=== PATIENT | male | born 1970 | race Caucasian/White ===

== ENCOUNTER 2024-10-16 07:41 | Emergency (ER) | payer BC, MEDICAID ==
[~2024-10-16] VITALS: Ht 182.9 cm; Wt 136.0 kg
[~2024-10-16 07:41] MED LIST: AMLO2.5T96 PO; QUET300T19 PO; QUET300T2 PO
[2024-10-16 07:45] VITALS: TEMP 97.8
[2024-10-16 07:50] VITALS: BP 134/69; PULSE 75; RESP 16; O2SAT 100
[2024-10-16 08:05] LABS: BASOPHILS % (AUTO) 0.8 % (0.0-2.0); EOSINOPHILS % (AUTO) 0.9 % (1.0-6.0); HEMATOCRIT 44.1 % (41-53); LYMPHOCYTES # (AUTO) 1.9 K/uL (1.0-4.8); LYMPHOCYTES % (AUTO) 19.3 % (22.0-44.0); MEAN CORPUSCULAR HEMOGLOBIN 29.8 pg (26.0-34.0); MEAN CORPUSCULAR HGB CONC 34.1 G/dL (31.0-37.0); MEAN CORPUSCULAR VOLUME 87 fL (80-100); MONOCYTES # (AUTO) 0.9 K/uL (0.1-1.0); MONOCYTES % (AUTO) 8.9 % (2.0-9.0); NEUTROPHILS % (AUTO) 70.1 % (40.0-70.0); PLATELET COUNT (AUTO) 180 K/uL (150-450); RED BLOOD CELL COUNT(AUTO) 5.05 MIL/uL (4.50-5.90); RED CELL DISTRIBUTION WIDTH 14.5 % (11.5-14.5)
[2024-10-16 08:14] LABS: ANION GAP 8 mmol/L (8-16); CALCIUM, TOTAL 9.4 mg/dL (8.8-10.5); CARBON DIOXIDE 28 mmol/L (22-29); CHLORIDE 101 mmol/L (98-107); CREATININE 0.77 mg/dL (0.60-1.30); GLOMERULAR FILTR. RATE CALC > 60 mL/min (>60); GLUCOSE,RANDOM 100 mg/dL (70-110); LIPASE 102 U/L (16-77); POTASSIUM 4.2 mmol/L (3.5-5.1); SODIUM SERUM 137 mmol/L (136-145); UREA NITROGEN, BLOOD 13 mg/dL (7-18)
[2024-10-16 08:20] LABS: ALBUMIN 4.1 g/dL (3.4-5.0); BILIRUBIN,DIRECT 0.3 mg/dL (0.00-0.20); TOTAL PROTEIN, SERUM 7.5 g/dL (6.4-8.2)
[2024-10-16 09:09] LABS: APPEARANCE,URINE CLEAR (CLEAR); BILIRUBIN,URINE NEGATIVE (NEGATIVE); COLOR,URINE COLORLESS (YELLOW); GLUCOSE, URINE (UA) NEGATIVE (NEGATIVE); KETONES,URINE NEGATIVE (NEGATIVE); LEUKOCYTE ESTERASE ,URINE NEGATIVE (NEGATIVE); NITRATE,URINE NEGATIVE (NEGATIVE); OCCULT BLOOD,URINE NEGATIVE (NEGATIVE); PH,URINE 6.5 (5.0-8.0); PROTEIN,URINE NEGATIVE (NEGATIVE); SPECIFIC GRAVITIY, URINE 1.004 (1.003-1.030); UROBILINOGEN,URINE <=1.0 mg/dL (<=1.0)
== END 2024-10-16 09:35 | disposition home or self-care (01) ==
LOC: EMS 07:46
DX: R10.84 Generalized abdominal pain (principal); I10 Essential (primary) hypertension; F20.9 Schizophrenia, unspecified; Z79.899 Other long term (current) drug therapy
CPT/HCPCS: 80048; 80076; 81003; 83690; 85025; 99283

== ENCOUNTER 2024-12-22 11:00 | Inpatient (IN) | payer BC, MEDICAID ==
[~2024-12-22] VITALS: Ht 185.4 cm; Wt 112.9 kg
[2024-12-22 11:44] LABS: ANION GAP 8 mmol/L (8-16); CALCIUM, TOTAL 9.2 mg/dL (8.8-10.5); CARBON DIOXIDE 27 mmol/L (22-29); CHLORIDE 104 mmol/L (98-107); CREATININE 0.84 mg/dL (0.60-1.30); GLOMERULAR FILTR. RATE CALC > 60 mL/min (>60); GLUCOSE,RANDOM 104 mg/dL (70-110); SODIUM SERUM 139 mmol/L (136-145); UREA NITROGEN, BLOOD 7 mg/dL (7-18)
[2024-12-22 11:47] LABS: BASOPHILS % (AUTO) 0.6 % (0.0-2.0); EOSINOPHILS % (AUTO) 0.7 % (1.0-6.0); HEMATOCRIT 47.6 % (41-53); HEMOGLOBIN 15.7 g/dL (13.5-17.5); LYMPHOCYTES # (AUTO) 1.4 K/uL (1.0-4.8); LYMPHOCYTES % (AUTO) 16.8 % (22.0-44.0); MEAN CORPUSCULAR HEMOGLOBIN 28.8 pg (26.0-34.0); MEAN CORPUSCULAR HGB CONC 32.9 G/dL (31.0-37.0); MEAN CORPUSCULAR VOLUME 88 fL (80-100); MONOCYTES # (AUTO) 0.6 K/uL (0.1-1.0); MONOCYTES % (AUTO) 7.3 % (2.0-9.0); NEUTROPHILS % (AUTO) 74.6 % (40.0-70.0); PLATELET COUNT (AUTO) 176 K/uL (150-450); RED BLOOD CELL COUNT(AUTO) 5.43 MIL/uL (4.50-5.90); RED CELL DISTRIBUTION WIDTH 15.5 % (11.5-14.5); WHITE BLOOD COUNT (AUTO) 8.1 K/uL (4.5-11.0)
[2024-12-22 12:24] LABS: COVID AG,FIA SOURCE NASAL SWAB
[2024-12-22 12:59] LABS: SARS-COV2 (COVID) ANTIGEN,FIA Negative (Negative)
[2024-12-22 14:03] VITALS: O2SAT 98
[2024-12-22 17:25] VITALS: BP 120/70; PULSE 75; RESP 15; TEMP 97.4; O2SAT 100
[2024-12-22] MEDS: haloperidoL 5 MG TABLET PO PRN (20:58)
[2024-12-22] MEDS: ZOLPIDEM TARTRATE 10 MG TABLET PO PRN (20:58)
[2024-12-22] MEDS: LORazepam 2 MG TABLET PO PRN (20:58)
[2024-12-22 22:33] VITALS: BP 126/87; PULSE 96; RESP 17; TEMP 97.1; O2SAT 99
[2024-12-23 08:33] VITALS: BP 121/79; PULSE 100; RESP 18; TEMP 98.4; O2SAT 88
[2024-12-23 08:34] LABS: BASOPHILS % (AUTO) 0.6 % (0.0-2.0); EOSINOPHILS % (AUTO) 1.2 % (1.0-6.0); HEMATOCRIT 44.2 % (41-53); LYMPHOCYTES # (AUTO) 1.3 K/uL (1.0-4.8); LYMPHOCYTES % (AUTO) 16.3 % (22.0-44.0); MEAN CORPUSCULAR HEMOGLOBIN 29.5 pg (26.0-34.0); MEAN CORPUSCULAR HGB CONC 33.9 G/dL (31.0-37.0); MEAN CORPUSCULAR VOLUME 87 fL (80-100); MONOCYTES # (AUTO) 0.4 K/uL (0.1-1.0); MONOCYTES % (AUTO) 5.4 % (2.0-9.0); NEUTROPHILS # (AUTO) 5.9 K/uL (1.8-7.7); NEUTROPHILS % (AUTO) 76.5 % (40.0-70.0); PLATELET COUNT (AUTO) 166 K/uL (150-450); RED BLOOD CELL COUNT(AUTO) 5.09 MIL/uL (4.50-5.90); RED CELL DISTRIBUTION WIDTH 15.7 % (11.5-14.5); WHITE BLOOD COUNT (AUTO) 7.7 K/uL (4.5-11.0)
[2024-12-23 08:39] LABS: HEMOGLOBIN A1C 4.9 % (3.8-5.6)
[2024-12-23 08:58] LABS: ALANINE AMINOTRANSFERASE 17 U/L (12-78); ALBUMIN 3.7 g/dL (3.4-5.0); ALKALINE PHOSPHATASE 64 U/L (46-116); ANION GAP 7 mmol/L (8-16); ASPARTATE AMINOTRANSFERASE 13 U/L (15-37); BILIRUBIN,TOTAL 0.7 mg/dL (0.1-1.0); CALCIUM, TOTAL 9.1 mg/dL (8.8-10.5); CARBON DIOXIDE 28 mmol/L (22-29); CHLORIDE 105 mmol/L (98-107); CHOLESTEROL 169 mg/dL (131-200); CREATININE 0.81 mg/dL (0.60-1.30); FREE T4 (FREE THYROXINE) 0.91 ng/dL (0.76-1.46); GLOMERULAR FILTR. RATE CALC > 60 mL/min (>60); GLUCOSE,RANDOM 111 mg/dL (70-110); HDL CHOLESTEROL 42 mg/dL (40-60); LDL CHOL (CALC.) 102 mg/dL (0-130); POTASSIUM 3.9 mmol/L (3.5-5.1); SODIUM SERUM 140 mmol/L (136-145); THYROID STIMULATING HORMONE 3.09 uIU/mL (0.36-3.74); TOTAL PROTEIN, SERUM 6.8 g/dL (6.4-8.2); TRIGLYCERIDES 127 mg/dL (15-150); UREA NITROGEN, BLOOD 9 mg/dL (7-18)
[2024-12-23 09:09] LABS: ALCOHOL, URINE DRUG SCREEN NEGATIVE (NEGATIVE); AMPHET/METH SCREEN,URINE NEGATIVE (NEGATIVE); BARBITURATE SCREEN, URINE NEGATIVE (NEGATIVE); BENZODIAZEPINES SCREEN,URINE NEGATIVE (NEGATIVE); CANNABINOID SCREEN,URINE NEGATIVE (NEGATIVE); COCAINE SCREEN,URINE NEGATIVE (NEGATIVE); METHADONE SCREEN, URINE NEGATIVE (NEGATIVE); OPIATE SCREEN,URINE NEGATIVE (NEGATIVE); PHENCYCLIDINE SCREEN,URINE NEGATIVE (NEGATIVE)
[2024-12-23] MEDS: QUEtiapine FUMARATE 300 MG TABLET PO SCH (14:08)
[2024-12-23 20:30] VITALS: RESP 17
[2024-12-24 08:18] VITALS: BP 133/78; PULSE 99; RESP 18; TEMP 97.4; O2SAT 100
[2024-12-24] MEDS: QUEtiapine FUMARATE 200 MG TABLET PO SCH (09:41)
[2024-12-24 20:39] VITALS: BP 131/90; PULSE 89; RESP 18; TEMP 97.3; O2SAT 97
[2024-12-25] MEDS: TAMSULOSIN HCL 0.4 MG CAPSULE PO SCH (08:14)
[2024-12-25 09:06] VITALS: BP_SYST 114; BP_SYST 144; BP_DIAS 72; PULSE 87; RESP 17; TEMP 97.8; O2SAT 99
[2024-12-25 20:11] VITALS: BP 131/84; PULSE 97; RESP 19; TEMP 97.3; O2SAT 97
[2024-12-26 08:22] VITALS: BP 142/94; PULSE 90; RESP 18; TEMP 97.1; O2SAT 99
[2024-12-26] MEDS ORDERED: DiphenhydrAMINE HCL 50 MG/ML VIAL ONE (12:09)
[2024-12-26] MEDS ORDERED: haloperidoL LACTATE 5 MG/ML VIAL ONE (12:09)
[2024-12-26] MEDS ORDERED: LORazepam 2 MG/ML VIAL ONE (12:09)
[2024-12-26] MEDS: LORazepam 2 MG/ML VIAL IM ONE (12:29)
[2024-12-26] MEDS: DiphenhydrAMINE HCL 50 MG/ML VIAL IM ONE (12:30)
[2024-12-26] MEDS: haloperidoL LACTATE 5 MG/ML VIAL IM ONE (12:30)
[2024-12-26 20:33] VITALS: BP 120/91; PULSE 65; RESP 16; TEMP 97.7; O2SAT 96
[2024-12-26] MEDS: OLANZapine 10 MG TABLET PO SCH (20:43)
[2024-12-27 08:30] VITALS: BP 126/91; PULSE 94; RESP 18; TEMP 97.1; O2SAT 98
[2024-12-27 10:06] VITALS: RESP 17
[2024-12-27] MEDS: IBUPROFEN 600 MG TABLET PO SCH (10:06)
[2024-12-27] MEDS: DOCUSATE SODIUM 250 MG CAPSULE PO SCH (10:06)
[2024-12-27 11:06] VITALS: RESP 18
[2024-12-27 20:14] VITALS: BP 121/79; PULSE 78; RESP 19; TEMP 97.4; O2SAT 99
[2024-12-28 00:15] VITALS: RESP 18
[2024-12-28 05:39] VITALS: RESP 20
[2024-12-28 06:57] VITALS: RESP 18
[2024-12-28 08:55] VITALS: BP 141/79; PULSE 83; RESP 18; TEMP 97.5; O2SAT 99
[2024-12-28] MEDS ORDERED: TAMS0.4C94 PO (10:16)
[2024-12-28] MEDS ORDERED: DOCU-412 PO (10:17)
[2024-12-28] MEDS ORDERED: QUET200T PO (10:19)
[2024-12-28] MEDS ORDERED: OLAN10TA74 PO (10:20)
== END 2024-12-28 15:15 | disposition home or self-care (01) | DRG 885 ==
LOC: EMS 11:01 → B3A 14:38
PROVIDERS: ADMIT Psychiatry & Neurology Child & Adolescent Psychiatry; ATTEND Psychiatry & Neurology Child & Adolescent Psychiatry
PROC: GZ56ZZZ Individual Psychotherapy, Supportive (ICD-10-PCS; principal; 2024-12-23)
DX: F25.1 Schizoaffective disorder, depressive type (principal); R45.851 Suicidal ideations; Z20.822 Contact with and (suspected) exposure to COVID-19; N40.0 Benign prostatic hyperplasia without lower urinary tract symptoms; Z91.148 Patient's other noncompliance with medication regimen for other reason
CPT/HCPCS: 80048; 80053; 80061; 80307; 83036; 84439; 84443; 85025; 99285; G0480; J1200; J1630; J2060

== ENCOUNTER 2025-01-05 12:48 | Inpatient (IN) | payer BC, MEDICAID ==
[~2025-01-05] VITALS: Ht 185.4 cm; Wt 117.0 kg
[~2025-01-05 12:48] MED LIST changes: -AMLO2.5T96 PO; +DOCU-412 PO; +OLAN10TA74 PO; +QUET200T PO; -QUET300T19 PO; -QUET300T2 PO; +TAMS0.4C94 PO
[2025-01-05 15:05] LABS: GLUCOMETER DEV NAME(LOC) POC.BV; POC SARS-COV2 AG, FIA NEGATIVE (NEGATIVE)
[2025-01-05 15:15] VITALS: BP 124/84; PULSE 72; RESP 17; TEMP 97.3; O2SAT 100
[2025-01-05] MEDS ORDERED: PARO10TA89 PO (16:06)
[2025-01-05 16:59] VITALS: BP 116/72; PULSE 77; RESP 18; TEMP 98.7; O2SAT 98
[2025-01-05] MEDS: haloperidoL 5 MG TABLET PO PRN (17:02)
[2025-01-05] MEDS: LORazepam 2 MG TABLET PO PRN (17:03)
[2025-01-05] MEDS ORDERED: FINA5TAB41 PO (17:52)
[2025-01-05 20:51] VITALS: BP 117/73; PULSE 78; RESP 17; TEMP 98.7; O2SAT 98
[2025-01-06] MEDS ORDERED: ACETAMINOPHEN 325 MG TABLET PO PRN (07:15)
[2025-01-06] MEDS: TAMSULOSIN HCL 0.4 MG CAPSULE PO SCH (08:22)
[2025-01-06] MEDS: DOCUSATE SODIUM 250 MG CAPSULE PO SCH (08:22)
[2025-01-06 08:44] LABS: BASOPHILS % (AUTO) 0.7 % (0.0-2.0); EOSINOPHILS % (AUTO) 1.8 % (1.0-6.0); HEMATOCRIT 44.9 % (41-53); LYMPHOCYTES # (AUTO) 1.5 K/uL (1.0-4.8); LYMPHOCYTES % (AUTO) 18.5 % (22.0-44.0); MEAN CORPUSCULAR HEMOGLOBIN 29.1 pg (26.0-34.0); MEAN CORPUSCULAR HGB CONC 33.5 G/dL (31.0-37.0); MEAN CORPUSCULAR VOLUME 87 fL (80-100); MONOCYTES # (AUTO) 0.6 K/uL (0.1-1.0); MONOCYTES % (AUTO) 6.8 % (2.0-9.0); NEUTROPHILS # (AUTO) 5.8 K/uL (1.8-7.7); NEUTROPHILS % (AUTO) 72.2 % (40.0-70.0); PLATELET COUNT (AUTO) 187 K/uL (150-450); RED BLOOD CELL COUNT(AUTO) 5.17 MIL/uL (4.50-5.90); RED CELL DISTRIBUTION WIDTH 15.1 % (11.5-14.5); WHITE BLOOD COUNT (AUTO) 8.1 K/uL (4.5-11.0)
[2025-01-06 08:54] VITALS: BP 125/81; PULSE 76; RESP 18; TEMP 97.6; O2SAT 100
[2025-01-06 09:00] LABS: ALCOHOL, BLOOD (SERUM) < 3 mg/dL (0-10)
[2025-01-06 09:03] LABS: HEMOGLOBIN A1C 4.9 % (3.8-5.6)
[2025-01-06 09:11] LABS: ALANINE AMINOTRANSFERASE 18 U/L (12-78); ALBUMIN 3.8 g/dL (3.4-5.0); ALKALINE PHOSPHATASE 70 U/L (46-116); ANION GAP 5 mmol/L (8-16); ASPARTATE AMINOTRANSFERASE 17 U/L (15-37); BILIRUBIN,TOTAL 0.7 mg/dL (0.1-1.0); CARBON DIOXIDE 31 mmol/L (22-29); CHLORIDE 102 mmol/L (98-107); CHOL/HDL RATIO 3.7 (4.2-7.3); CHOLESTEROL 161 mg/dL (131-200); CREATININE 0.71 mg/dL (0.60-1.30); GLOMERULAR FILTR. RATE CALC > 60 mL/min (>60); GLUCOSE,RANDOM 81 mg/dL (70-110); HDL CHOLESTEROL 43 mg/dL (40-60); LDL CHOL (CALC.) 80 mg/dL (0-130); POTASSIUM 3.8 mmol/L (3.5-5.1); SODIUM SERUM 138 mmol/L (136-145); T4 (THYROXINE) 5.8 mcg/dL (4.7-13.3); THYROID STIMULATING HORMONE 2.44 uIU/mL (0.36-3.74); TOTAL PROTEIN, SERUM 6.9 g/dL (6.4-8.2); TRIGLYCERIDES 189 mg/dL (15-150); UREA NITROGEN, BLOOD 8 mg/dL (7-18)
[2025-01-06 11:21] VITALS: RESP 18
[2025-01-06] MEDS: IBUPROFEN 600 MG TABLET PO PRN (11:21)
[2025-01-06 12:21] VITALS: RESP 18
[2025-01-06] MEDS: QUEtiapine FUMARATE 200 MG TABLET PO SCH (12:23)
[2025-01-06 20:39] VITALS: BP 113/77; PULSE 93; RESP 17; TEMP 97; O2SAT 98
[2025-01-06] MEDS: PARoxetine HCL 10 MG TABLET PO SCH (21:14)
[2025-01-06] MEDS: OLANZapine 10 MG TABLET PO SCH (21:14)
[2025-01-06] MEDS: ZOLPIDEM TARTRATE 10 MG TABLET PO PRN (21:14)
[2025-01-07 08:57] VITALS: BP 123/76; PULSE 84; RESP 17; TEMP 97; O2SAT 98
[2025-01-07 15:52] VITALS: RESP 18
[2025-01-07 20:28] VITALS: BP 133/76; PULSE 95; RESP 18; TEMP 97.5; O2SAT 99
[2025-01-08 08:21] VITALS: BP 120/82; PULSE 93; RESP 18; TEMP 98; O2SAT 99
[2025-01-08 08:42] LABS: APPEARANCE,URINE CLEAR (CLEAR); BILIRUBIN,URINE NEGATIVE (NEGATIVE); COLOR,URINE LIGHT YELLOW (YELLOW); GLUCOSE, URINE (UA) NEGATIVE (NEGATIVE); KETONES,URINE NEGATIVE (NEGATIVE); LEUKOCYTE ESTERASE ,URINE NEGATIVE (NEGATIVE); NITRATE,URINE NEGATIVE (NEGATIVE); OCCULT BLOOD,URINE NEGATIVE (NEGATIVE); PH,URINE 6.5 (5.0-8.0); PH,URINE DRUG SCREEN 6.5 (5.0-8.0); PROTEIN,URINE NEGATIVE (NEGATIVE); UROBILINOGEN,URINE <=1.0 mg/dL (<=1.0)
[2025-01-08 08:47] LABS: ALCOHOL, URINE DRUG SCREEN NEGATIVE (NEGATIVE); AMPHET/METH SCREEN,URINE NEGATIVE (NEGATIVE); BARBITURATE SCREEN, URINE NEGATIVE (NEGATIVE); BENZODIAZEPINES SCREEN,URINE NEGATIVE (NEGATIVE); CANNABINOID SCREEN,URINE NEGATIVE (NEGATIVE); COCAINE SCREEN,URINE NEGATIVE (NEGATIVE); METHADONE SCREEN, URINE NEGATIVE (NEGATIVE); OPIATE SCREEN,URINE NEGATIVE (NEGATIVE); PHENCYCLIDINE SCREEN,URINE NEGATIVE (NEGATIVE)
[2025-01-08] MEDS: QUEtiapine FUMARATE 100 MG TABLET PO ONE (10:13)
[2025-01-08 20:24] VITALS: BP 131/84; PULSE 98; RESP 18; TEMP 97.8; O2SAT 92
[2025-01-08] MEDS: QUEtiapine FUMARATE 300 MG TABLET PO SCH (22:00)
[2025-01-09 08:52] VITALS: BP 128/89; PULSE 97; RESP 18; TEMP 97.8; O2SAT 99
[2025-01-09 20:26] VITALS: BP 123/84; PULSE 90; RESP 17; TEMP 97.4; O2SAT 97
[2025-01-10 06:23] VITALS: BP 121/76; RESP 18
[2025-01-10 08:20] VITALS: BP 111/70; PULSE 88; RESP 17; TEMP 98; O2SAT 98
[2025-01-10 22:36] VITALS: BP 127/84; PULSE 80; RESP 17; TEMP 97.4; O2SAT 96
[2025-01-11 06:34] VITALS: BP 116/75; RESP 18
[2025-01-11 09:03] VITALS: BP 122/83; PULSE 79; RESP 18; TEMP 98.1; O2SAT 100
[2025-01-11] MEDS ORDERED: PARO10TA89 PO (14:52)
[2025-01-11] MEDS ORDERED: QUET300T2 PO (14:53)
== END 2025-01-11 15:45 | disposition home or self-care (01) | DRG 885 ==
LOC: B3A 14:23
PROVIDERS: ADMIT Psychiatry & Neurology Child & Adolescent Psychiatry; ATTEND Psychiatry & Neurology Child & Adolescent Psychiatry
PROC: GZHZZZZ Group Psychotherapy (ICD-10-PCS; principal; 2025-01-06)
PROC: GZ52ZZZ Individual Psychotherapy, Cognitive (ICD-10-PCS; 2025-01-06)
PROC: GZ56ZZZ Individual Psychotherapy, Supportive (ICD-10-PCS; 2025-01-06)
DX: F20.0 Paranoid schizophrenia (principal); Z20.822 Contact with and (suspected) exposure to COVID-19
CPT/HCPCS: 80053; 80061; 80307; 81003; 83036; 84436; 84439; 84443; 85025; 86592; G0480